=== PATIENT | male | born 1965 | race Caucasian/White ===

== ENCOUNTER 2021-06-13 17:33 | Inpatient (IN) | payer MEDICAID, SELFPAY ==
[~2021-06-13] VITALS: Ht 165.1 cm; Wt 79.0 kg
--- NOTE | 2021-06-13 17:34 | NUR ---
Placed in room 08 . Placed on compliance monitor, blood pressure machine and pulse oximeter. To gown for exam. Side rails up.
[2021-06-13 17:35] VITALS: BP_SYST 129
--- NOTE | 2021-06-13 17:35 | NUR ---
ER DR. GONSALVES AT THE BEDSIDE EXAMINING PT
--- NOTE | 2021-06-13 17:40 | NUR ---
PT CAME IN FROM HOME C/O SOB, WEAKNESS, FEVER X 1 WEEK. PT REPORTS DOING AN AT HOME COVID TEST YESTERDAY WHICH WAS POSITIVE. PT ARRIVES 02 SAT 92% RA, TACHYCARDIC 119, TEMP 100.7. PT IS AMBULATORY, AAOX4, V/S STABLE
--- NOTE | 2021-06-13 18:30 | NUR ---
# 20 gauge angiocath placed to RAC. Use of asceptic technique. Opsite placed over site. Blood return noted. Blood for lab drawn from site. Flushed with 10 cc of normal saline. No evidence of infiltration noted. Patient tolerated well.
--- NOTE | 2021-06-13 18:40 | NUR ---
02 SAT DECREASING TO 90%, PT PLACED ON NC@ 2LPM, 02 SAT INCREASED TO 97%
--- NOTE | 2021-06-13 18:50 | NUR ---
PT ABLE TO VOID WITH URINAL, SPECIMEN COLLECTED
--- NOTE | 2021-06-13 18:59 | NUR ---
REPORT GIVEN TO BRUCE LE FOR CONTINUING CARE
--- NOTE | 2021-06-13 19:00 | NUR ---
PT RESTING IN BED. O2 AT 2L NC. DENIES ANY PAIN AT THIS TIME. VSS. REQUESTED WATER AND PO FLUIDS GIVEN. 20 G RIGHT AC SALINE LOCK INTACT. MEXICAN SPEAKING. ADRESSED ALL CONCERNS AT THIS TIME. RESPIRATIONS EVEN AND UNLABORED.
[2021-06-13 19:03] LABS: BASOPHILS % (AUTO) 0.2 % (0.0-2.0); HEMATOCRIT 42.3 % (36-54); HEMOGLOBIN 14.4 g/dL (14.0-18.0); LYMPHOCYTES # (AUTO) 0.4 K/uL (1.0-5.5); LYMPHOCYTES % (AUTO) 5.9 % (20.5-51.5); MEAN CORPUSCULAR HEMOGLOBIN 30 pg (27-31); MEAN CORPUSCULAR HGB CONC 34 % (32-36); MEAN CORPUSCULAR VOLUME 88 fL (79.0-98.0); MONOCYTES # (AUTO) 0.3 K/uL (0.0-1.0); MONOCYTES % (AUTO) 4.1 % (1.7-9.3); NEUTROPHILS # (AUTO) 6.2 K/uL (1.8-7.7); NEUTROPHILS % (AUTO) 89.8 % (40.0-70.0); PLATELET COUNT (AUTO) 230 K/uL (130-430); RED BLOOD CELL COUNT(AUTO) 4.83 MIL/uL (4.2-6.2); RED CELL DISTRIBUTION WIDTH 13.2 % (9.0-15.0); WHITE BLOOD COUNT (AUTO) 6.9 K/uL (4.8-10.8)
[2021-06-13 19:12] LABS: BILIRUBIN,URINE NEGATIVE (NEGATIVE); BLOOD, URINE NEGATIVE (NEGATIVE); CLARITY/URINE CLEAR (CLEAR); GLUCOSE,URINE NEGATIVE (NEGATIVE); KETONES,URINE NEGATIVE (NEGATIVE); LEUKOCYTE ESTERASE ,URINE NEGATIVE (NEGATIVE); NITRITE, URINE NEGATIVE (NEGATIVE); PH,URINE 6.5 (5.0-8.0); PROTEIN URINE 1+ (NEGATIVE); UROBILINOGEN,URINE 0.2 (0.2-1.0)
[2021-06-13 19:13] LABS: C-REACTIVE PROTEIN QUANT 12.4 mg/dL (0-0.5); CALCIUM 8.3 mg/dL (8.4-11.0); CREATININE 0.84 mg/dL (0.55-1.30); POTASSIUM 4.1 mmol/L (3.5-5.1)
[2021-06-13 19:15] LABS: INR 0.9 (0.80-1.20); PROTHROMBIN TIME 9.7 SECS (9.5-12.5)
[2021-06-13 19:19] LABS: ALBUMIN 3.2 g/dL (3.4-4.8); TOTAL BILIRUBIN 0.5 mg/dL (0.0-1.0)
[2021-06-13 19:23] LABS: COLOR,URINE AMBER (YELLOW)
[2021-06-13 19:29] LABS: BACTERIA,URINE None Seen /HPF (None Seen); MUCUS,URINE None Seen /LPF (None Seen); RBC,URINE 0-3 /HPF (0-3); WBC,URINE NONE SEEN /HPF (0-3)
[2021-06-13] MEDS ORDERED: NACL 0.9% 1,000 ML IV ONE (19:30)
[2021-06-13] MEDS ORDERED: DEXAMETHASONE SOD PHOSPHATE 4 MG/ML VIAL IVP ONE (19:30)
[2021-06-13] MEDS ORDERED: AZITHROMYCIN 500 MG in NS 250 ML IV ONE (19:30)
[2021-06-13] MEDS ORDERED: ACETAMINOPHEN 500 MG TABLET PO ONE (19:30)
[2021-06-13] MEDS ORDERED: cefTRIAXone 1 GM IVPB PREMIX 50 ML IV ONE (19:30)
[2021-06-13] MEDS ORDERED: DEXAMETHASONE SOD PHOSPHATE 4 MG/ML VIAL ONE (19:41)
[2021-06-13] MEDS ORDERED: AZITHROMYCIN 500 MG/VIAL (ZITHROMAX) IV ONE (19:41)
--- NOTE | 2021-06-13 19:50 | NUR ---
BELONGINGS DONE AND DOCUMENTED AT BEDSIDE WITH PATIENT.
--- NOTE | 2021-06-13 20:01 | NUR ---
Patient's code status is FULL CODE paperwork completed and placed in chart.
--- NOTE | 2021-06-13 20:26 | NUR ---
Patient will be admitted to care of JERAMIE. Admitted to TELE unit. PENDING ROOM ASSIGNENT REQUESTED TO LEONID. Belongings list completed. Complete and up to date summary report printed. SBAR report to be given at bedside with opportunity for questions.
[2021-06-13] MEDS ORDERED: ALBUTEROL SULFATE 0.083% 2.5 MG/3 ML VIAL.NEB INH PRN (20:30)
[2021-06-13] MEDS ORDERED: HYDROcodone/ACETAMIN 5-325 MG TAB (NORCO/ VICODIN) PO PRN (20:30)
[2021-06-13] MEDS ORDERED: ONDANSETRON HCL 4 MG/2 ML VIAL IVP PRN (20:30)
[2021-06-13] MEDS ORDERED: MORPHINE 2 MG/ML INJ. SYRINGE IVP PRN (20:45)
--- NOTE | 2021-06-13 21:01 | NUR ---
Transfer to TELE via ACLS protocol. Licensed nurse present. IV present no signs or symptoms of infiltration.
--- NOTE | 2021-06-13 21:25 | NUR ---
ADMISSION: The patient, NATY RIBERA, 55 y/o, M admitted by VIOLET BOBO MD, WITH THE DIAGNOSIS OF COVID PNEUMONIA TO ROOM 133 B
[2021-06-13 21:45] VITALS: BP_SYST 142
--- NOTE | 2021-06-13 21:45 | NUR ---
INITIAL NOTES: PT IS AWAKE , ON O2 2L NC , SAT 95% ; VITALS ARE STABLE , HR IS ON THE HIGH 90S ASSESSMENT COMPLETED ; IV NOTICED TO R AC 20 G, NO S/S OF ANY INFILTRATION NOTICED . TELEMONITOR IS RUNNING SR ; PLAN OF CARE DISCUSSED ; ASSISTED PT TO RESTROOM ; NOTICED PT IS ABLE TO WALK ,BUT DUE TO O2 USAGE ENCOURAGED PT TO CALL FOR ASSISTANCE .BED IN LOW AND LOCK POSITION; CALL BIANCHI IN REACHED, ENCOURAGED PT TO CALL FOR ANY ASSISTANCE . WILL CONTINUE TO MONITOR PT .
[2021-06-13 22:06] VITALS: BP_SYST 138
[2021-06-14] VITALS (7 sets, daily range): BP systolic 113–122
--- NOTE | 2021-06-14 00:30 | NUR ---
RN NOTES: PT IS SLEEPING , RESPIRATION IS EVEN AND NON LABORED ; EASILY AROUSABLE ; VITALS ARE STABLE , AFEBRILE ; WILL CONTINUE TO MONITOR PT .
--- NOTE | 2021-06-14 04:48 | NUR ---
RN NOTES: PT IS SLEEPING , RESPIRATION IS EVEN AND NON LABORED ; EASILY AROUSABLE ; VITALS ARE STABLE ; WILL CONTINUE TO MONITOR PT .
--- NOTE | 2021-06-14 05:10 | NUR ---
PAGED FOR CONSULT ORDERING PHYSICIAN: REASON FOR CONSULT: VANESSA SPOKE TO:SAMMI
--- NOTE | 2021-06-14 07:05 | NUR ---
CLOSING NOTES: PT IS COMFORTABLE ; NOT IN ANY ACUTE DISTRESS; ALL NEEDS ATTENDED ;ON O2 2L NC ; WILL CONTINUE TO MONITOR AND WILL ENDORSE TO NEXT SHIFT NURSE .
[2021-06-14 07:29] LABS: BASOPHILS % (AUTO) 0.1 % (0.0-2.0); HEMATOCRIT 39.6 % (36-54); HEMOGLOBIN 13.5 g/dL (14.0-18.0); LYMPHOCYTES # (AUTO) 0.3 K/uL (1.0-5.5); LYMPHOCYTES % (AUTO) 5.6 % (20.5-51.5); MEAN CORPUSCULAR HEMOGLOBIN 30 pg (27-31); MEAN CORPUSCULAR HGB CONC 34 % (32-36); MEAN CORPUSCULAR VOLUME 88 fL (79.0-98.0); MONOCYTES # (AUTO) 0.2 K/uL (0.0-1.0); MONOCYTES % (AUTO) 3.5 % (1.7-9.3); NEUTROPHILS # (AUTO) 5.3 K/uL (1.8-7.7); NEUTROPHILS % (AUTO) 90.8 % (40.0-70.0); PLATELET COUNT (AUTO) 235 K/uL (130-430); RED BLOOD CELL COUNT(AUTO) 4.51 MIL/uL (4.2-6.2); RED CELL DISTRIBUTION WIDTH 13.5 % (9.0-15.0); WHITE BLOOD COUNT (AUTO) 5.9 K/uL (4.8-10.8)
[2021-06-14 08:03] LABS: ALBUMIN 2.7 g/dL (3.4-4.8); CALCIUM 8.1 mg/dL (8.4-11.0); CREATININE 0.6 mg/dL (0.55-1.30); POTASSIUM 4.2 mmol/L (3.5-5.1); TOTAL BILIRUBIN 0.2 mg/dL (0.0-1.0)
[2021-06-14] MEDS: DEXAMETHASONE SOD PHOSPHATE 10 MG/ML VIAL IVP SCH (08:08)
--- NOTE | 2021-06-14 09:00 | NUR ---
CONSULT PULMONARY COVID DR GRAHAM [phone] DR BARTLETT [employer] S/W ANE EXCHANGE
[2021-06-14] MEDS: ENOXAPARIN SODIUM 30 MG/0.3 ML SYRINGE SUBCUT SCH ×2 (10:11→21:35)
[2021-06-14] MEDS: ALBUTEROL MDI INHALATION 8 GM INH INH PRN ×2 (10:11→18:36)
[2021-06-14] MEDS ORDERED: ASCORBIC ACID 500 MG TABLET PO ONE (12:15)
[2021-06-14] MEDS ORDERED: CHOLECALCIFEROL (VITAMIN D3) 5,000 UNIT TABLET PO ONE (12:15)
[2021-06-14] MEDS ORDERED: FAMOTIDINE 20 MG TABLET PO ONE (12:15)
--- NOTE | 2021-06-14 18:24 | NUR ---
NURSING NOTES [id number]: 0715AM: PATIENT IS RESTING IN BED QUIETLY. CURRENTLY ON 2L NC 02 SAT 93%. SOB NOTED ON EXERTION. NO ADDITIONAL DISTRESS NOTED. BED IN LOW AND LOCK POSITION CALL LIGHT WITHIN REACH. . STABLE CONDITION AT THIS TIME. WILL CONT TO MONITOR. 0800AM: PATIENT NOTED TO HAVE EPISODE OF CONTINUOUSLY COUGHING (NON PRODUCTIVE) AND C/O SOB. 02 SAT 88% IN 2L NC. INCREASE 02 TO 4L NC O2 SAT 95%. 0808AM: DECADRON IVP GIVEN TO HELP WITH SOB. 02 SAT 95% ON 4L NC. NO ADDITIONAL DISTRESS NOTED. NO COUGHING AT THIS TIME. WILL CONT TO MONITOR. 1011AM: PATIENT CALLED TO GO TO THE BATHROOM. SOB ON EXERTION NOTED. GAVE 2 PUFF OF ALBUTEROL INHALATION. PROVIDED 02 TANK PORTABLE AT 4L NC WHILE IN THE BATHROOM. WILL CONT TO MONITOR. 1020AM: RETURNED TO THE BED IN A STABLE CONDITION. SON ON EXERTION. CURRENTLY ON 4LNC 02 SAT 95%. NO ADDITIONAL DISTRESS NOTED. WILL CONT TO MONITOR. 1200PM: PATIENT IS RESTING IN BED EATING HIS LUNCH. NO ADDITIONAL DISTRESS NOTED. 02 SAT 95% ON 4L NC. STABLE AT THIS TIME. 1400: PATIENT IS RESTING IN BED WATCHING TV. NO ADDITIONAL DISTRESS NOTED. 02 SAT 95% ON 4L NC. WILL CONT TO MONITOR. 1600: PATIENT IS RESTING IN BED, AWAKE. NO CHANGE FROM PREVIOUS ASSESSMENT. STABLE AT THIS TIME. 1700: 2 PUFF OF ALBUTEROL TAKEN PRIOR TO AMBULATING TO THE BATHROOM DUE TO SOB ON EXERTION. USED O2 4LNC WHILE IN THE RESTROOM USING PORTABLE TANK. WILL CONT TO MONITOR. 1800: PATIENT IS RESTING IN BED EATING HIS LUNCH. NO ADDITIONAL DISTRESS NOTED. 02 SAT 98% ON 4L NC. STABLE AT THIS TIME.
--- NOTE | 2021-06-14 18:50 | NUR ---
CLOSING NOTES: PATIENT IS RESTING IN BED QUIETLY. NO ADDITIONAL DISTRESS NOTED. 02 SAT 98% ON 4LNC. STABLE CONDITION AT THIS TIME. WILL CONT TO MONITOR.
[2021-06-14] MEDS: AZITHROMYCIN 500 MG in NS 250 ML IV SCH (21:34)
[2021-06-15] VITALS: BP_SYST 126
[2021-06-15 08:00] VITALS: BP_SYST 110
[2021-06-15] MEDS: FAMOTIDINE 20 MG TABLET PO SCH (09:05)
[2021-06-15] MEDS: ASCORBIC ACID 500 MG TABLET PO SCH (09:05)
[2021-06-15] MEDS: DEXAMETHASONE SOD PHOSPHATE 10 MG/ML VIAL IVP SCH (09:05)
[2021-06-15] MEDS: CHOLECALCIFEROL (VITAMIN D3) 5,000 UNIT TABLET PO SCH (09:06)
[2021-06-15] MEDS: ENOXAPARIN SODIUM 30 MG/0.3 ML SYRINGE SUBCUT SCH ×2 (09:07→20:13)
[2021-06-15 09:36] LABS: BASOPHILS % (AUTO) 0.1 % (0.0-2.0); HEMATOCRIT 40.5 % (36-54); HEMOGLOBIN 13.7 g/dL (14.0-18.0); LYMPHOCYTES # (AUTO) 0.5 K/uL (1.0-5.5); LYMPHOCYTES % (AUTO) 5.7 % (20.5-51.5); MEAN CORPUSCULAR HEMOGLOBIN 30 pg (27-31); MEAN CORPUSCULAR HGB CONC 34 % (32-36); MEAN CORPUSCULAR VOLUME 88 fL (79.0-98.0); MONOCYTES # (AUTO) 0.3 K/uL (0.0-1.0); MONOCYTES % (AUTO) 3.5 % (1.7-9.3); NEUTROPHILS % (AUTO) 90.7 % (40.0-70.0); PLATELET COUNT (AUTO) 301 K/uL (130-430); RED BLOOD CELL COUNT(AUTO) 4.63 MIL/uL (4.2-6.2); RED CELL DISTRIBUTION WIDTH 13.4 % (9.0-15.0); WHITE BLOOD COUNT (AUTO) 8.9 K/uL (4.8-10.8)
[2021-06-15 09:41] LABS: CALCIUM 8.3 mg/dL (8.4-11.0); CREATININE 0.78 mg/dL (0.55-1.30); PHOSPHORUS 2.9 mg/dL (2.7-4.5); POTASSIUM 3.7 mmol/L (3.5-5.1)
[2021-06-15 12:00] VITALS: BP_SYST 119
[2021-06-15 16:00] VITALS: BP_SYST 121
[2021-06-15 19:00] VITALS: BP_SYST 116
--- NOTE | 2021-06-15 19:15 | NUR ---
change of shift.pt.presents quiescent affect calm resting.pt.presents o2 therapy via nasal cannulae:rate:4l/min 02-sat%=96%pt.utilizing the urinal.i have attended to the urinal placed w/in access of the pt.pt.capable to reposition self/ambulate unassisted. call light/telephone w/in access of the pt.language barrier extant;tuvaluan.to attend o the pt.tuvaluan to facilitate communication.
[2021-06-15 20:00] VITALS: BP_SYST 116
--- NOTE | 2021-06-15 20:00 | NUR ---
pt.assessed.v/s assessed values wnl.02-sat%=94%.no c/o pain,nausea.i have attended to the urinal placed w/in access of the pt.i apprised the pt.that snacks/beverages are available w/in the shift.pt.requested sandwich/soda provided.call light/telephone w/in access of the pt.
[2021-06-15] MEDS: AZITHROMYCIN 500 MG in NS 250 ML IV SCH (20:11)
--- NOTE | 2021-06-15 21:00 | NUR ---
2100 p medications administered.rocephin/zithromax abx ivpb via peripheral access intact patent.pt.requested snacks provided.call light/corinne garciat.
--- NOTE | 2021-06-15 22:00 | NUR ---
pt.assessed.pt.presents quiescent affect calm resting.no c/o pian nausea.iv access intact abx infusing.i have attended to urinal w/in access of the pt.no requests posited@this hour.call light/telephone w/in access of the pt.
[2021-06-16] VITALS: BP_SYST 112
--- NOTE | 2021-06-16 | NUR ---
pt.assessed.v/s assessed values wnl.o2-sat%=96%.no c/o pain nausea.pt.requested tea/blankets provided.i have attended to the urinal placed w/in access of the pt.call light/telephone w/in access of the pt.
--- NOTE | 2021-06-16 02:00 | NUR ---
pt.assessed.pt.presents quiescent affect calm somnolent.o2-sat%=94%.urinal attended to cleaned placed w/in access of the pt.pt.per flacc pain mgx pt.absent facial grimaces/body posturing.pt.capable to reposition self.call light/telephone w/in access of the pt.
--- NOTE | 2021-06-16 04:00 | NUR ---
pt.assessed.pt.presents quiescent affect calm somnolent.per flacc pain mgx pt.absent facial grimaces/body posturing. o2-sat% =96%.urinal w/in access of the pt.pt.capable to reposition self.call light/telephone placed w/in access of the pt.
--- NOTE | 2021-06-16 06:00 | NUR ---
pt.assessed.o2-sat%-96%.no c/o pain,nausea.no requests posited@this hour.urinal w/in access of the pt.call light/telephone w/in access of the pt.
--- NOTE | 2021-06-16 06:19 | NUR ---
Nutrition Update Abdelrahman Scale 17 noted. Pt admitted for COVID Pneumonia Diet: Regular BMI: 29 kg/m2 RD to follow per nutrition care standards.
[2021-06-16 06:21] LABS: BASOPHILS % (AUTO) 0.1 % (0.0-2.0); HEMATOCRIT 37.6 % (36-54); HEMOGLOBIN 12.8 g/dL (14.0-18.0); LYMPHOCYTES # (AUTO) 0.3 K/uL (1.0-5.5); LYMPHOCYTES % (AUTO) 4.2 % (20.5-51.5); MEAN CORPUSCULAR HEMOGLOBIN 30 pg (27-31); MEAN CORPUSCULAR HGB CONC 34 % (32-36); MEAN CORPUSCULAR VOLUME 87 fL (79.0-98.0); MONOCYTES # (AUTO) 0.5 K/uL (0.0-1.0); MONOCYTES % (AUTO) 8.1 % (1.7-9.3); NEUTROPHILS # (AUTO) 5.4 K/uL (1.8-7.7); NEUTROPHILS % (AUTO) 87.6 % (40.0-70.0); PLATELET COUNT (AUTO) 329 K/uL (130-430); RED BLOOD CELL COUNT(AUTO) 4.33 MIL/uL (4.2-6.2); WHITE BLOOD COUNT (AUTO) 6.2 K/uL (4.8-10.8)
[2021-06-16 07:55] VITALS: BP_SYST 107
[2021-06-16 08:00] VITALS: BP_SYST 107
[2021-06-16 08:28] LABS: CALCIUM 8.4 mg/dL (8.4-11.0); CREATININE 0.69 mg/dL (0.55-1.30); PHOSPHORUS 3.8 mg/dL (2.7-4.5); POTASSIUM 4.2 mmol/L (3.5-5.1)
[2021-06-16] MEDS: CHOLECALCIFEROL (VITAMIN D3) 5,000 UNIT TABLET PO SCH (08:55)
[2021-06-16] MEDS: FAMOTIDINE 20 MG TABLET PO SCH (08:55)
[2021-06-16] MEDS: ASCORBIC ACID 500 MG TABLET PO SCH (08:56)
[2021-06-16] MEDS: ENOXAPARIN SODIUM 30 MG/0.3 ML SYRINGE SUBCUT SCH ×2 (08:57→21:48)
--- NOTE | 2021-06-16 10:30 | NUR ---
REGAL TIRE INSTALLER UPDATED WITH PT'S CONDITION. UPDATED WITH CURRENT LABS AND VITALS.
[2021-06-16] MEDS: DEXAMETHASONE SOD PHOSPHATE 10 MG/ML VIAL IVP SCH (10:52)
--- NOTE | 2021-06-16 12:40 | NUR ---
pt given IS machine. instructed pt on how to use it and also instructed pt on proning while in bed.
[2021-06-16 15:20] VITALS: BP_SYST 115
[2021-06-16 16:24] VITALS: BP_SYST 107
[2021-06-16 20:00] VITALS: BP_SYST 118
[2021-06-16] MEDS: AZITHROMYCIN 500 MG in NS 250 ML IV SCH (21:47)
[2021-06-17 04:53] VITALS: BP_SYST 116
[2021-06-17 07:50] VITALS: BP_SYST 108
[2021-06-17 08:00] VITALS: BP_SYST 108
--- NOTE | 2021-06-17 09:00 | NUR ---
INSTRUCTED PT TO CONTINUE DOING THE I.S. EXERCISE AND CONTINUE PRONING. PT STATED THAT HE IS FEELING BETTER NOW AND IS NOT SOB ON ROOM AIR.
[2021-06-17] MEDS: FAMOTIDINE 20 MG TABLET PO SCH (09:48)
[2021-06-17] MEDS: ASCORBIC ACID 500 MG TABLET PO SCH (09:49)
[2021-06-17] MEDS: ENOXAPARIN SODIUM 30 MG/0.3 ML SYRINGE SUBCUT SCH ×2 (09:50→21:51)
[2021-06-17] MEDS: DEXAMETHASONE SOD PHOSPHATE 10 MG/ML VIAL IVP SCH (09:51)
[2021-06-17] MEDS: CHOLECALCIFEROL (VITAMIN D3) 5,000 UNIT TABLET PO SCH (09:52)
[2021-06-17 11:25] VITALS: BP_SYST 106
[2021-06-17 15:46] VITALS: BP_SYST 103
--- NOTE | 2021-06-17 19:06 | NUR ---
PER PT HE HAS NOT BEEN USING THE O2 THE WHOLE DAY, RECHECKED HIS O2 SAT ON ROOM AIR. IT WAS 94%. INSTRUCTED PT TO CONTINUE PRONING AND THE I.SPIROMETRY EXERCISE.
[2021-06-17 21:00] VITALS: BP_SYST 111
--- NOTE | 2021-06-17 21:35 | NUR ---
I.S. use Educated pt re I.S. use 10x while awake, pt demonstrated understanding doing 1000ml. Some coughing noted but denies sob. To monitor.
--- NOTE | 2021-06-17 21:40 | NUR ---
Opening notes Pt AAOx4, VSS, O2 sat 92% on room air. No c/o pain or SOB. IV abx administered R. FA 22G clear and patent. Call light within reach. Pt ambulates to bathroom, steady gait. To monitor.
[2021-06-17] MEDS: AZITHROMYCIN 500 MG in NS 250 ML IV SCH (21:41)
[2021-06-18 00:30] VITALS: BP_SYST 116
--- NOTE | 2021-06-18 06:10 | NUR ---
Closing notes Pt asleep, no s/s distress noted. IV saline locked, R. FA 22G clear and patent. call light within reach. Bed low, locked, siderails up x2. To endorse to AM nurse.
[2021-06-18 07:58] LABS: BASOPHILS % (AUTO) 0.1 % (0.0-2.0); EOSINOPHILS % (AUTO) 0.6 % (0.0-4.0); HEMATOCRIT 43.3 % (36-54); HEMOGLOBIN 14.8 g/dL (14.0-18.0); LYMPHOCYTES % (AUTO) 14.1 % (20.5-51.5); MEAN CORPUSCULAR HEMOGLOBIN 30 pg (27-31); MEAN CORPUSCULAR HGB CONC 34 % (32-36); MEAN CORPUSCULAR VOLUME 87 fL (79.0-98.0); MONOCYTES # (AUTO) 0.7 K/uL (0.0-1.0); MONOCYTES % (AUTO) 9.9 % (1.7-9.3); NEUTROPHILS # (AUTO) 5.1 K/uL (1.8-7.7); NEUTROPHILS % (AUTO) 75.3 % (40.0-70.0); PLATELET COUNT (AUTO) 440 K/uL (130-430); RED CELL DISTRIBUTION WIDTH 13.2 % (9.0-15.0); WHITE BLOOD COUNT (AUTO) 6.7 K/uL (4.8-10.8)
[2021-06-18 08:00] VITALS: BP_SYST 108
[2021-06-18 08:10] LABS: CALCIUM 8.8 mg/dL (8.4-11.0); CREATININE 0.75 mg/dL (0.55-1.30); POTASSIUM 4.2 mmol/L (3.5-5.1); TOTAL BILIRUBIN 0.3 mg/dL (0.0-1.0)
[2021-06-18 08:11] LABS: ALBUMIN 2.9 g/dL (3.4-4.8)
--- NOTE | 2021-06-18 08:15 | NUR ---
Opening Notes Patient is awake, alert and oriented x4. No resp distress noted. Breathing is even and unlabored. Pt remains on RA at this time. Pt remains on droplet precautions for positive covid 19 result. Pt is noted with a dry hacking cough. IV site on right AC 20 gauge intact at this time, saline lock. C/D/I and flushing well. Pt is ambulatory, no c/o SOB. Incentive spirometer at bedside. Pending CXRAY results. All needs met at this time. Safety and fall precautions in place. Bed in lowest position, alarm on, locked. Will continue to monitor.
[2021-06-18 08:40] LABS: C-REACTIVE PROTEIN QUANT 0.6 mg/dL (0-0.5)
[2021-06-18] MEDS: ASCORBIC ACID 500 MG TABLET PO SCH (08:43)
[2021-06-18] MEDS: DEXAMETHASONE SOD PHOSPHATE 10 MG/ML VIAL IVP SCH (08:44)
[2021-06-18] MEDS: FAMOTIDINE 20 MG TABLET PO SCH (08:44)
[2021-06-18] MEDS: CHOLECALCIFEROL (VITAMIN D3) 5,000 UNIT TABLET PO SCH (08:44)
[2021-06-18] MEDS: ENOXAPARIN SODIUM 30 MG/0.3 ML SYRINGE SUBCUT SCH (08:50)
--- NOTE | 2021-06-18 10:00 | NUR ---
Notes Patient is laying in bed, resting at this time. Dry cough noted. Pt remains on RA at this time. Possible pending discharge. Will follow up with Dr. Robertson for DC clearance. Pt denies any pain. Will continue to monitor.
[2021-06-18] MEDS ORDERED: DEC4 PO (11:43)
[2021-06-18 11:47] VITALS: BP_SYST 103
--- NOTE | 2021-06-18 12:00 | NUR ---
Notes Patient is sleeping at this time. No resp distress noted. Breathing is even and unlabored. Pt denies any pain at this time. Pending discharge. Will continue to monitor.
--- NOTE | 2021-06-18 14:00 | NUR ---
D/C Patient Patient given rX PRESCRIPTION and D/C instructions. Exit Care provided. Patient verbalized understanding. MD discussed with patient the results and treatment provided. Ambulatory with steady gait for discharge to home. Patient in stable condition, ID band removed. IV catheter removed, intact and dressing applied, no active bleeding. pt was instructed that Dr. REID discontinued his prescription. Patient educated on pain management. All belongings sent with patient.
[2021-06-18 14:08] LABS: ERYTHROCYTE SEDIMENTATION RATE 31 MM/HR (0-15)
== END 2021-06-18 14:00 | disposition home or self-care (01) | DRG 720 ==
LOC: SED 17:33 → STU 20:21 → SMU 06-17 21:59
PROVIDERS: ADMIT Internal Medicine Hospice and Palliative Medicine; ATTEND Internal Medicine Hospice and Palliative Medicine
DX: A41.89 Other specified sepsis (principal); J96.01 Acute respiratory failure with hypoxia; J12.82 Pneumonia due to coronavirus disease 2019; U07.1 COVID-19; E87.1 Hypo-osmolality and hyponatremia; E66.9 Obesity, unspecified; E88.09 Other disorders of plasma-protein metabolism, not elsewhere classified; R73.9 Hyperglycemia, unspecified; Z79.01 Long term (current) use of anticoagulants; Z68.29 Body mass index [BMI] 29.0-29.9, adult
CPT/HCPCS: 36415; 36600; 71045; 80048; 80053; 81000; 82550; 82728; 82803-TC; 83605; 83615; 83735; 83880; 84100; 84484; 85025; 85379; 85384; 85610-TC; 85651-TC; 85730-TC; 86140; 86710; 87040-TC; 87086; 93005; 96365; 96368; 99291; G0378; J0456; J0696; J1100; J1650; J7050; J7060